=== PATIENT | male | born 1955 | race Caucasian/White ===

== ENCOUNTER 2023-01-06 06:43 | Emergency (ER) | payer BC ==
[~2023-01-06] VITALS: Ht 175.3 cm; Wt 81.6 kg
[2023-01-06 06:48] VITALS: BP_SYST 124; PULSE 73; RESP 20; TEMP 97.4; O2SAT 97
[2023-01-06] MEDS ORDERED: HYDROcodone/ACETAMIN 5-325 MG TAB (NORCO/ VICODIN) PO ONE (07:00)
[2023-01-06] MEDS ORDERED: ZAN4 PO (08:16)
[2023-01-06] MEDS ORDERED: METH-776 PO (08:16)
[2023-01-06 08:27] VITALS: BP_SYST 124; PULSE 73; RESP 20; TEMP 97.4; O2SAT 97
== END 2023-01-06 08:26 | disposition home or self-care (01) ==
LOC: SED 06:43
DX: M54.12 Radiculopathy, cervical region (principal)
CPT/HCPCS: 72125-TC; 76376; 99284